=== PATIENT | male | born 2005 ===

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

== ENCOUNTER 2024-03-28 11:37 | Outpatient (CLI) | payer OTHER, SELFPAY ==
[2024-03-28 12:08] LABS: Basophils Absolute Auto 0.07 K/mm3 (0.00-0.10); Basophils Percent Auto 1.3 % (0.0-1.0); Eosinophils Percent Auto 1.8 % (1.0-6.0); Hematocrit 45.3 % (40.0-54.0); Hemoglobin 15.2 g/dL (14.0-18.0); Immature Granulocyte Absolute 0.03 K/mm3 (0.00-0.00); Immature Granulocyte Percent A 0.5 % (0.0-0.0); Lymphocytes Absolute Auto 1.57 K/mm3 (1.10-4.50); Lymphocytes Percent Auto 28.7 % (18.0-42.0); Mean Corpuscular HGB Conc 33.6 g/dL (32-36); Mean Corpuscular Hemoglobin 29.8 pg (27.0-31.0); Mean Corpuscular Volume 88.8 fL (78.0-102.0); Mean Platelet Volume 9.1 fl (8.7-11.0); Monocytes Percent Auto 14.6 % (2.0-11.0); Neutrophils Percent Auto 53.1 % (50.0-70.0); Platelet Count Result 256 K/mm3 (150-420); Red Cell Distribution Width 11.9 % (11.6-14.4); White Blood Count 5.5 K/mm3 (4.8-10.8)
[2024-03-28 12:44] LABS: Alanine Aminotransferase 25 U/L (16-63); Alkaline Phosphatase 56 U/L (46-116); Anion Gap 10 mmol/L (4-12); Aspartate Amino Transferase 21 U/L (15-37); Bilirubin,Total 1.1 mg/dL (0.00-1.00); Blood Urea Nitrogen 14 mg/dL (7-18); Calcium 9.3 mg/dL (8.5-10.1); Carbon Dioxide 29 mmol/L (21-32); Chloride 101 mmol/L (98-108); Estimated Glomerular Filt Rate > 60; Glucose 79 mg/dL (70-99); Osmolality Calculated 289 mOsm/kg (285-295); Potassium 3.9 mmol/L (3.5-5.1); Sodium 140 mmol/L (136-145); Total Protein 7.2 g/dL (6.4-8.2)
== END 2024-03-28 11:38 | disposition home or self-care (01) ==
PROVIDERS: PCP Internal Medicine; Visit Provider Nurse Practitioner Family
DX: R10.9 Unspecified abdominal pain (principal)
CPT/HCPCS: 36415; 80053; 85025

== ENCOUNTER 2025-06-29 07:16 | Day surgery (SDC) | payer OTHER, SELFPAY ==
[2025-05-04 09:14] VITALS: BMI 28.1
[2025-06-12 07:38] VITALS: BMI 28.0
--- OUTSIDE RECORDS SUMMARY | 2025-06-29 07:29 | XMS_ITS | Clinical Summary ---
Author Organization [facility] Address [address] [place] [address] Care Team Providers Care Fabric Pattern Grader Name Role Phone Loreta Comer MD Primary Care Provider [phone] Source Comments [facility],non-owned Affiliates and Associated Physician Practices is amultiple site organization consisting of ambulatory clinics and hospital sitesin [place] and [place]. This disclosure is being madepursuant to the Care Everywhere program and may not contain all information available regarding this patient. Last updated 18.[facility] Active Problems Problem Noted Date Diagnosed Date Attention deficit hyperactivity disorder (ADHD) 06/03/2010 Overview (09/19/2015): Oppositional defiant disorder 06/03/2010 Overview (08/12/2015): Social History Tobacco Use Types Packs/Day Years Used Date Smoking Tobacco: Never Assessed Sex and Gender Information Value Date Recorded Sex Assigned at Not on file Legal Sex Male 5:43 AM [employer] Gender Identity Not on file Sexual Orientation Not on file Plan of Treatment Health Maintenance Due Date Last Done Comments HIV SCREENING 02/16/2019 HPV VACCINE (1 - Male 3-dose series) 02/16/2019 MENINGOCOCCAL (Group B) VACC INE SHARED DECISION-MAKING (1 of 2 - Standard) 2020 HEPATITIS C SCREENING 02/12/2022 DTAP/TDAP/TD VACCINES (1 - Tdap) 02/16/2023 HEPATITIS B VACCINE (1 of 3 - 19+ 3-dose series) 02/16/2023 COVID-19 VACCINE ( - 2023-2 5 season) 2024 DEPRESSION SCREENING 11/12/2024 INFLUENZA VACCINE (#1) 2025 ZOSTER VACCINE (1 of 2) 02/16/2054 HIB VACCINE Aged Out No longer eligi ble based on patient's age to complete this topic MENINGOCOCCAL GROUPS A/C/Y/W VACCINE Aged Out No longer eligible b ased on patient's age to complete this topic PNEUMOCOCCAL VACCINE Aged Out No long er eligible based on patient's age to complete this topic Care Teams Fabric Pattern Grader Relationship Specialty Start Date End Date Loreta Comer MD [address] [place] [id number] PCP - General 06/01/10
[2025-06-29 07:45] VITALS: BP 121/61; PULSE 94; RESP 18; TEMP 36.8; O2SAT 100; BMI 27.5
--- NOTE | 2025-06-29 07:58 | WPDANESEPPF ---
Anes - Initial Pre Proc Eval Procedure: Operation Date: 06/29/25 08:30 Proposed Procedures p Esophagogastroduodenoscopy - Gurjit Benson DO Date/Time: 06/29/25 07:58 Surgeon: Gurjit Benson DO Pre Op Diagnosis: Gerd Patient Data Age: 20 Gender: M Height: 1.68 m Weight: 77.4 kg Last Vital Signs Temp 98.2 F 06/29/25 07:45 Pulse 94 06/29/25 07:45 Resp 18 06/29/25 07:45 BP 121/61 06/29/25 07:45 Pulse Ox 100 06/29/25 07:45 O2 Del Method Room Air 06/29/25 07:45 Allergies Allergy/AdvReac Type Severity Reaction Status Date / Time amoxicillin Allergy Rash Verified 06/29/25 07:38 Home Medications ?Medication ?Instructions ?Recorded ?Confirmed ?Type No Home Medications 06/12/25 06/12/25 History Patient hx anesthesia problems: none Family hx anesthesia problems: none Results Review: All pre-operative results and documents have been reviewed as part of the pre-operative evaluation. [facility] Past Medical History Medical History No active medical problems Social History Social History Smoking status: Never smoker Alcohol intake: current Alcohol use details: occasional Substance use type: marijuana Other substance usage details: occasional Living arrangements: with family Spiritual care concerns: No Anes - Eval Final PreProcedure Day of Procedure 06/29/25 07:58 Heart: regular rate and rhythm Lungs: clear to auscultation Airway: Mallampati scale class 1 Neurological: alert and oriented Last oral intake: >/= 8 hours ASA classification: II Anesthetic plan: proceed Anesthesia type and monitoring: monitored anesthesia care Results Review: All pre-operative results and documents have been reviewed as part of the pre-operative evaluation. Informed Consent: The patient's anesthetic plan and its attendant risks and benefits were discussed with the patient/family/POA. Questions were solicited and answers provided to the satisfaction of the patient/family/POA.
[2025-06-29] MEDS: LACTATED RINGERS 1,000 ML 150 ML IV CONT ×2 (08:01→09:22)
--- NOTE | 2025-06-29 08:01 | SUR.PREOP ---
IV START. PT FELT FAINT. HOB FLAT, IVF INFUSING. FATHER AT BEDSIDE
--- NOTE | 2025-06-29 08:23 | PM.IMHP ---
H&P: HPI History of Present Illness Date/Time: 06/29/25 08:23 Chief Complaint: GERD Narrative: this is a 20-year-old man who presents for EGD. He has been experiencing acid reflux and left upper quadrant abdominal pain. He denies any hematemesis. He denies using NSAIDs or aspirin. He denies smoking cigarettes but does occasionally smoke marijuana. Review of Systems Review of Systems: All systems reviewed & are unremarkable except as noted in HPI and below Constitutional: Constitutional: Denies chills, Denies fever(s), Denies headache(s) and Denies weight loss Eyes: Eyes: Denies change in vision ENT: Denies dizziness, Denies headache(s), Denies neck mass and Denies throat swelling Cardiovascular: Cardiovascular: Denies chest pain, Denies lightheadedness and Denies dyspnea Respiratory: Respiratory: Denies cough, Denies dyspnea and Denies wheezing Gastrointestinal: Gastrointestinal: Denies abdominal pain, Denies change in bowel habits, Denies nausea and Denies vomiting Genitourinary: Genitourinary: Denies hematuria and Denies dysuria Musculoskeletal: Musculoskeletal: Reports as per HPI Integumentary/Breasts: Skin/Breast: Reports as per HPI Neurologic: Denies dizziness and Denies headache(s) Allergic/Immunologic: Allergic/Immunologic: Denies throat swelling and Denies wheezing PMFSH Past Medical History Medical History No active medical problems Social History Social History Smoking status: Never smoker Alcohol intake: current Alcohol use details: occasional Substance use type: marijuana Other substance usage details: occasional Living arrangements: with family Spiritual care concerns: No Meds Home Medications and Allergies Home Medications ?Medication ?Instructions ?Recorded ?Confirmed ?Type No Home Medications 06/12/25 06/12/25 History Allergies Allergy/AdvReac Type Severity Reaction Status Date / Time amoxicillin Allergy Rash Verified 06/29/25 07:38 Vital Signs Vital Signs - 24 hr 06/29/25 07:45 Temperature 98.2 F Pulse Rate 94 Respiratory Rate 18 Blood Pressure 121/61 Pulse Oximetry 100 Oxygen Delivery Room Air Exam Const: General: no acute distress and alert Orientation/consciousness: patient oriented x3 HENMT: Head: normocephalic and atraumatic Ears: hearing grossly normal bilaterally Face/Nose/Sinus: Normal nares present Mouth: Yes Normal oral and palatal mucosa present Eyes: Periorbital: periorbital findings normal Sclera: sclerae normal EOM: EOMs intact bilaterally Neck: Neck: normal visual inspection, no lymphadenopathy and trachea midline Chest: Chest palpation & inspection: normal inspection of the chest Resp: Effort & Inspection: normal respiratory effort Auscultation: clear to auscultation bilaterally Cardio: Jugular venous distension: no JVD Rate: regular rate Rhythm: regular rhythm Heart sounds: S1 normal heart sound present and S2 normal heart sound present Peripheral pulses: Peripheral pulses 2+ throughout GI: Inspection: normal to inspection GI Palp: Yes Soft to palpation, No Tenderness to palpation present (GI), No Guarding due to palpation present (GI) and No Rebound tenderness present Percussion: Yes normal to percussion Auscultation: normal bowel sounds : General: Yes no CVA tenderness Back/Spine/Pelvis: Back: no CVA tenderness Neuro: General: patient oriented x3, no focal motor deficits and CN's II-XI intact bilaterally Cognition (Neuro): normal cognition Speech: normal speech Motor exam (neuro): 5/5 motor strength present throughout Extrem: General: capillary refill normal and no clubbing, cyanosis or edema Assessment and Plan Assessment and plan (1) GERD (gastroesophageal reflux disease): Code(s): K21.9 - Gastro-esophageal reflux disease without esophagitis Status: Acute Assessment and Plan: I have recommended EGD. I have discussed the procedure, risks, benefits, and alternatives. Questions were answered. Patient is agreeable to proceed.
--- NOTE | 2025-06-29 08:41 | WPDANESPN ---
Anes - Prog Note Post-Op Date/Time: 06/29/25 08:41 Vital Signs: Last Vital Signs Temp 98.2 F 06/29/25 07:45 Pulse 94 06/29/25 07:45 Resp 18 06/29/25 07:45 BP 121/61 06/29/25 07:45 Pulse Ox 100 06/29/25 07:45 O2 Del Method Room Air 06/29/25 07:45 Pain Score (VAS): no Patient Feedback: Patient satisfied with anesthetic care.
[2025-06-29 08:44] VITALS: BP 102/52; PULSE 65; RESP 15; O2SAT 96
--- NOTE | 2025-06-29 09:01 | WPDANESPN ---
Anes - Prog Note Post-Op Date/Time: 06/29/25 09:01 Vital Signs: Last Vital Signs Temp 98.2 F 06/29/25 07:45 Pulse 65 06/29/25 08:44 Resp 15 06/29/25 08:44 BP 102/52 L 06/29/25 08:44 Pulse Ox 96 06/29/25 08:44 O2 Del Method Room Air 06/29/25 08:44 Pain Score (VAS): no I/O: Intake & Output 06/28/25 06/29/25 06/29/25 23:59 07:59 15:59 Intake Total 0 Balance 0 Patient Feedback: Patient satisfied with anesthetic care.
[2025-06-29 09:04] VITALS: BP 86/64; PULSE 88; RESP 15; O2SAT 99
== END 2025-06-29 09:23 | disposition home or self-care (01) ==
PROVIDERS: PCP Internal Medicine; Visit Provider Surgery
PROC: 0DJ08ZZ Inspection of Upper Intestinal Tract, Via Natural or Artificial Opening Endoscopic (ICD-10-PCS; CPT 43239; principal; 2025-06-29 08:30)
DX: K21.9 Gastro-esophageal reflux disease without esophagitis (principal)
CPT/HCPCS: 43239